=== PATIENT | male | born 1970 | race Caucasian/White ===

== ENCOUNTER 2016-09-18 18:57 | Emergency (ER) | payer BC ==
[2016-09-18 19:21] LABS: BASOPHILS % (AUTO) 0.6 %; EOSINOPHILS # (AUTO) 0.2 10^3/uL (0.0-0.7); EOSINOPHILS % (AUTO) 2.3 %; HCT - HEMATOCRIT 45.2 % (42.0-52.0); HGB - HEMOGLOBIN 15.5 g/dL (14.0-18.0); LYMPHOCYTES # (AUTO) 2.6 10^3/uL (1.5-3.5); LYMPHOCYTES % (AUTO) 36.7 %; MEAN CORPUSCULAR HEMOGLOBIN 30.1 pg (27.0-31.0); MEAN CORPUSCULAR HGB CONC 34.2 g/dL (32.0-36.0); MEAN PLATELET VOLUME 7.7 fL (7.4-11.4); MONOCYTES # (AUTO) 0.4 10^3/uL (0.0-1.0); MONOCYTES % (AUTO) 5.8 %; NEUTROPHILS # (AUTO) 3.9 10^3/uL (1.5-6.6); NEUTROPHILS % (AUTO) 54.6 %; NUCLEATED RED BLOOD CELLS AUTO 0.1 /100WBC; RED BLOOD COUNT 5.14 10^6/uL (4.70-6.10); UNCORRECTED WHITE BLOOD COUNT 7.2 x10^3/uL; WHITE BLOOD COUNT 7.2 x10^3/uL (4.8-10.8)
[2016-09-18 19:34] LABS: ALBUMIN/GLOBULIN RATIO 1.2 (1.0-2.2); BILIRUBIN,TOTAL 0.8 mg/dL (0.2-1.0); CREATININE 0.9 mg/dL (0.6-1.2); POTASSIUM 3.9 mmol/L (3.5-5.0); TOTAL PROTEIN 7.9 g/dL (6.7-8.2)
[2016-09-18] MEDS ORDERED: LIDOCAINE VISCOUS 2% 15 ML UDC MM STA (19:47)
[2016-09-18] MEDS ORDERED: ONDANSETRON 4 MG/2 ML VIAL IVP STA (19:47)
[2016-09-18] MEDS ORDERED: KETOROLAC 60 MG/2 ML VIAL IVP STA (19:47)
[2016-09-18] MEDS ORDERED: MAG HYDROX/AL HYDROX/SIMETH 30 ML UDC PO STA (19:47)
[2016-09-18] MEDS ORDERED: SODIUM CHLORIDE 0.9% 1,000 ML IV ONE (19:51)
--- NOTE | 2016-09-18 19:51 | ED Physician Documentation ---
PD HPI ABD PAIN - Stated complaint Stated Complaint: ABD PX - Chief complaint Chief Complaint: Abd Pain - History obtained from History obtained from: Patient, Family - History of Present Illness Timing - onset: Other (Healthy 45-year-old gentleman with no history of abdominal surgeries has had nonmigratory periumbilical and central low abdominal pain that he described as a burning and has been constant for the last 2-1/2 days associated with nausea and one episode of vomiting. He had a normal bowel movement on the day of onset but has not had a bowel movement since. He has not been obstipated though. There is no associated measured fever but per the girlfriend he felt hot last night. No recent travel.) Review of Systems Ten Systems: 10 systems reviewed and negative Constitutional: reports: Chills, Fatigue Nose: denies: Rhinorrhea / runny nose, Congestion Cardiac: denies: Chest pain / pressure, Palpitations Respiratory: denies: Dyspnea, Cough PD PAST MEDICAL HISTORY - Past Medical History Past Medical History: Yes Cardiovascular: Hypertension, High cholesterol - Past Surgical History Past Surgical History: No - Present Medications Home Medications: Ambulatory Orders Medication Instructions Recorded Confirmed Ondansetron HCl [Zofran] 4 mg PO Q6H PRN #10 tablet 09/18/16 - Allergies Allergies/Adverse Reactions: Allergies Allergy/AdvReac Type Severity Reaction Status Date / Time No Known Drug Allergies Allergy Verified 09/18/16 19:02 - Social History Does the pt smoke?: Yes Smoking Status: Current every day smoker Does the pt drink ETOH?: Yes Does the pt have substance abuse?: No - Family History Family history: reports: Non contributory PD ED PE NORMAL - Vitals Vital signs reviewed: Yes - General General: Alert and oriented X 3, No acute distress - HEENT HEENT: PERRL, EOMI - Neck Neck: Supple, no meningeal sign, No bony TTP - Cardiac Cardiac: RRR, No murmur - Respiratory Respiratory: No respiratory distress, Clear bilaterally - Abdomen Abdomen: Normal bowel sounds, Soft, Non tender - Back Back: No CVA TTP, No spinal TTP - Extremities Extremities: No deformity, No tenderness to palpate, No edema, No calf tenderness / cord - Neuro Neuro: Alert and oriented X 3, Normal speech - Psych Psych: Normal mood, Normal affect Results - Vitals Vitals: Vital Signs - 24 hr 09/18/16 09/18/16 19:00 20:49 Temperature 36.3 C L 36.1 C L Heart Rate 66 50 L Respiratory 22 14 Rate Blood Pressure 147/91 H 147/83 H O2 Saturation 98 99 Oxygen O2 Source Room air - Labs Labs: Laboratory Tests 09/18/16 09/18/16 09/18/16 19:16 19:16 20:34 WBC 7.2 RBC 5.14 Hgb 15.5 Hct 45.2 MCV 88.0 MCH 30.1 MCHC 34.2 RDW 13.0 Plt Count 224 MPV 7.7 Neut # 3.9 Lymph # 2.6 [place] # 0.4 Eos # 0.2 Baso # 0.0 Absolute Nucleated RBC 0.01 Nucleated RBCs 0.1 Sodium 137 Potassium 3.9 Chloride 103 Carbon Dioxide 27 Anion Gap 7.0 BUN 12 Creatinine 0.9 Estimated GFR (MDRD) 91 Glucose 106 H Calcium 9.0 Total Bilirubin 0.8 AST 18 ALT 22 Alkaline Phosphatase 63 Total Protein 7.9 Albumin 4.3 Globulin 3.6 Albumin/Globulin Ratio 1.2 Lipase 22 Urine Color YELLOW Urine Clarity CLEAR Urine pH 6.0 Ur Specific [place] 1.015 Urine Protein NEGATIVE Urine Glucose (UA) NEGATIVE Urine Ketones NEGATIVE Urine Occult Blood NEGATIVE Urine Nitrite NEGATIVE Urine Bilirubin NEGATIVE Urine Urobilinogen 0.2 (NORMAL) Ur Leukocyte Esterase NEGATIVE Ur Microscopic Review NOT INDICATED Urine Culture Comments NOT INDICATED PD MEDICAL DECISION MAKING - ED course ED course: 45-year-old gentleman with a few days worth of abdominal pain and nausea and one episode of vomiting. He has a benign exam, benign labs, and a benign CT. He felt better after Toradol, Zofran, and a GI cocktail. Given the time course of improvement after the administration of medications I suspect it was the Toradol that helped, not the GI cocktail. Regardless he requested discharge but was given abdominal pain precautions. Departure - Departure Disposition: 01 Home, Self Care Clinical Impression: Abdominal pain Qualifiers: Abdominal location: periumbilical Qualified Code(s): R10.33 - Periumbilical pain Condition: Good Record reviewed to determine appropriate education?: Yes Instructions: Abdominal Pain Prescriptions: Ondansetron HCl [Zofran] 4 mg PO Q6H PRN #10 tablet PRN Reason: Nausea / Vomiting Comments: Return in 12-24 hours if not better, anytime if worse or if you run a fever. Your blood pressure was elevated today on check into the emergency department. This does not mean that you have hypertension, it is a common phenomenon to come to the emergency department and have elevated blood pressure. I recommend that she see her primary care physician within the week to have it rechecked when you are feeling better.
[2016-09-18] MEDS ORDERED: KETOROLAC 30 MG/ML VIAL ONE (19:57)
[2016-09-18] MEDS ORDERED: MAG HYDROX/AL HYDROX/SIMETH 30 ML UDC ONE (19:57)
[2016-09-18] MEDS ORDERED: ONDANSETRON 4 MG/2 ML VIAL ONE (19:57)
[2016-09-18] MEDS ORDERED: LIDOCAINE VISCOUS 2% 15 ML UDC MM ONE (19:57)
[2016-09-18] MEDS ORDERED: IOPAMIDOL-300 100 ML VIAL IVP ONE (20:45)
[2016-09-18 20:49] LABS: BILIRUBIN,URINE NEGATIVE (NEGATIVE)
[2016-09-18 20:50] LABS: UA CHARGE (STRIP ONLY) YES; UR CULTURE IF IND NOT INDICATED
--- NOTE | 2016-09-18 21:02 | CT Preliminary Report ---
Exam: CT Abdomen/Pelvis W/ IMPRESSION: Incidental hepatic cysts. Diverticulosis, without CT evidence of diverticulitis. No evide nt etiology for patient's pain. [facility] SITE ID: [id number]
--- NOTE | 2016-09-18 21:05 | CT Report ---
EXAM: CT ABDOMEN AND PELVIS EXAM DATE: 09/18/2016 08:52 PM. CLINICAL HISTORY: Low abd pain, IV only. COMPARISONS: None. TECHNIQUE: Routine helical CT imaging was performed through the abdomen and pelvis. IV contrast: 100 mL Isovue 300. Enteric contrast: No. Reconstructions: Coronal and sagittal. In accordance with CT protocol optimization, one or more of the following dose reduction techniques w ere utilized for this exam: automated exposure control, adjustment of mA and/or KV based on patient s ize, or use of iterative reconstructive technique. FINDINGS: Lung Bases: Unremarkable. Liver: Scattered cysts. No solid hepatic lesion or intrahepatic biliary dilatation. Gallbladder/Bile Ducts: Unremarkable. Spleen: Small splenule anterior to the spleen. Normal spleen. Pancreas: Normal. Adrenal Glands: Normal. Kidneys: Normal. No masses or hydronephrosis. Peritoneal Cavity/Bowel: Normal. No free fluid, free air or adenopathy. No masses or acute inflammato ry process. The appendix is well visualized and normal. Pelvic Organs: There are a few scattered sigmoid diverticula present, without CT evidence of divertic ulitis. The bladder and visualized pelvic organs are within normal limits. Vasculature: No aneurysms or other significant abnormality. Bones: No significant abnormality. Other: None. IMPRESSION: Incidental hepatic cysts. Diverticulosis, without CT evidence of diverticulitis. No evide nt etiology for patient's pain. [facility] Referring Provider Line: [phone] SITE ID: [id number]
[2016-09-18 21:23] VITALS: BP 147/87
== END 2016-09-18 21:22 | disposition home or self-care (01) ==
LOC: ED 18:57
DX: R10.33 Periumbilical pain (principal); R11.2 Nausea with vomiting, unspecified; I10 Essential (primary) hypertension; F17.200 Nicotine dependence, unspecified, uncomplicated
CPT/HCPCS: 36415; 74177; 80053; 81003; 83690; 85025; 96374; 96375; 99283; 99284; A9270; Q9967; 81001; 87086

== ENCOUNTER 2023-04-10 13:51 | Emergency (ER) | payer OTHER ==
--- NOTE | 2023-04-10 14:56 | XRAY Report ---
PROCEDURE: Chest 1V INDICATIONS: Chest Pain TECHNIQUE: One view of the chest was acquired. COMPARISON: 11/08/2021 FINDINGS: Surgical changes and devices: None. Lungs and pleura: No pleural effusions or pneumothorax. Lungs are clear. Mediastinum: Mediastinal contours appear normal. Heart size is normal. Bones and chest wall: No suspicious bony lesions. Overlying soft tissues appear unremarkable. IMPRESSION: No acute cardiopulmonary process. Reviewed by: Goyo Adler MD on 04/10/2023 2:54 PM PST Approved by: Goyo Adler MD on 04/10/2023 2:54 PM [facility] Station ID: [id number]
[2023-04-10 15:08] LABS: BASOPHILS # (AUTO) 0.1 10^3/uL (0.0-0.1); EOSINOPHILS # (AUTO) 0.3 10^3/uL (0.0-0.7); EOSINOPHILS % (AUTO) 3.6 %; HGB - HEMOGLOBIN 15.6 g/dL (14.0-18.0); LYMPHOCYTES # (AUTO) 2.8 10^3/uL (1.5-3.5); LYMPHOCYTES % (AUTO) 40.9 %; MEAN CORPUSCULAR HEMOGLOBIN 29.4 pg (27.0-31.0); MEAN CORPUSCULAR HGB CONC 33.2 g/dL (32.0-36.0); MEAN CORPUSCULAR VOLUME 88.7 fL (80.0-94.0); MEAN PLATELET VOLUME 9.6 fL (7.4-11.4); MONOCYTES # (AUTO) 0.4 10^3/uL (0.0-1.0); MONOCYTES % (AUTO) 5.7 %; NEUTROPHILS # (AUTO) 3.3 10^3/uL (1.5-6.6); NEUTROPHILS % (AUTO) 48.5 %; PLT - PLATELET COUNT 240 10^3/uL (130-450); WHITE BLOOD COUNT 6.9 x10^3/uL (4.8-10.8)
[2023-04-10 15:41] LABS: TROPONIN I HIGH SENSITIVITY 2.3 ng/L (2.3-19.7)
[2023-04-10 15:44] LABS: ALBUMIN 4.1 g/dL (3.2-5.5); ALBUMIN/GLOBULIN RATIO 1.4 (1.0-2.2); BILIRUBIN,TOTAL 0.6 mg/dL (0.2-1.0); CALCIUM 9.3 mg/dL (8.5-10.3); POTASSIUM 4.3 mmol/L (3.5-4.5)
[2023-04-10 15:51] LABS: CREATININE 1.1 mg/dL (0.6-1.3)
[2023-04-10] MEDS ORDERED: iohexoL-300 100 ML VIAL ONE (18:44)
--- NOTE | 2023-04-10 19:34 | ED Physician Documentation ---
History of Present Illness - Stated complaint Stated Complaint: DIZZINESS,SOA,UPPER BACK PX - Chief complaint Chief Complaint: General - History obtained from History obtained from: Patient - History of Present Illness Timing: How many weeks ago (1) Pain level max: 4 Pain level now: 4 - Additonal information Additional information: Patient is a 52-year-old male who presents to the emergency department stating that for the past 1 week he has had upper and mid back pain as well as occasional neck and posterior head pain. He states he feels lightheaded often. Does not feel the room spinning. Nothing seems to make the pain better or worse. 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 No head injuries. No numbness or tingling. No loss of bowel or bladder control. He states that sometimes it feels better to lift the seatbelt off of his chest. Has not taken anything for pain. He does smoke, states rarely drinks alcohol. Denies any drug use. Denies any prior cardiac history. Review of Systems Constitutional: denies: Fever, Chills GI: denies: Vomiting, Diarrhea Skin: denies: Rash Musculoskeletal: denies: Neck pain, Back pain Neurologic: denies: Headache PD PAST MEDICAL HISTORY - Past Medical History Past Medical History: Yes Cardiovascular: Hypertension, High cholesterol - Past Surgical History Past Surgical History: No - Present Medications Home Medications: Ambulatory Orders Medication Instructions Recorded Confirmed ondansetron HCL [Zofran] 4 mg PO Q6H PRN #10 tablet 09/18/16 Atorvastatin [Lipitor] 20 mg PO DAILY #60 tablet 11/09/21 Nitroglycerin [Nitrostat] 0.4 mg SL [id number] #25 tablet 11/09/21 - Allergies Allergies/Adverse Reactions: Allergies Allergy/AdvReac Type Severity Reaction Status Date / Time No Known Drug Allergies Allergy Verified 04/10/23 13:55 - Social History Does the pt smoke?: Yes Smoking Status: Current every day smoker Does the pt drink ETOH?: Yes Does the pt have substance abuse?: No PD ED PE NORMAL - Vitals Vital signs reviewed: Yes - General General: Alert and oriented X 3, No acute distress - HEENT HEENT: PERRL, Moist mucous membranes - Neck Neck: Supple, no meningeal sign - Cardiac Cardiac: RRR, No murmur, Strong equal pulses - Respiratory Respiratory: No respiratory distress, Clear bilaterally - Abdomen Abdomen: Soft, Non tender, Non distended - Derm Derm: Warm and dry - Extremities Extremities: No edema, No calf tenderness / cord - Neuro Neuro: Alert and oriented X 3 - Psych Psych: Normal mood, Normal affect Results - Vitals Vitals: Vital Signs - 24 hr 04/10/23 04/10/23 04/10/23 13:55 17:09 19:28 Temperature 36.8 C Heart Rate 78 65 62 Respiratory 16 16 20 Rate Blood Pressure 145/90 H 128/82 H 118/64 O2 Saturation 98 100 98 04/10/23 20:00 Temperature Heart Rate 57 L Respiratory 19 Rate Blood Pressure 117/74 O2 Saturation 99 Oxygen O2 Source Room air - EKG (time done) 1555 EKG releavant findings:: EKG personally interpreted by author of this note. Relevant findings are: Rate: Rate (enter#) (70) Rhythm: NSR [place]: Normal Intervals: Normal [place] QRS: Normal Ischemia: Normal ST segments - Labs Labs: Laboratory Tests 04/10/23 04/10/23 15:02 15:02 WBC 6.9 RBC 5.30 Hgb 15.6 Hct 47.0 MCV 88.7 MCH 29.4 MCHC 33.2 RDW 13.0 Plt Count 240 MPV 9.6 Neut # (Auto) 3.3 Lymph # (Auto) 2.8 [place] # (Auto) 0.4 Eos # (Auto) 0.3 Baso # (Auto) 0.1 Absolute Nucleated RBC 0.00 Nucleated RBC % 0.0 Sodium 138 Potassium 4.3 Chloride 104 Carbon Dioxide 30 Anion Gap 4.0 L BUN 17 Creatinine 1.1 Estimated GFR (MDRD) 70 L Glucose 95 Calcium 9.3 Total Bilirubin 0.6 AST 17 ALT 20 Alkaline Phosphatase 66 Troponin I High Sens 2.3 Total Protein 7.0 Albumin 4.1 Globulin 2.9 Albumin/Globulin Ratio 1.4 Lipase 19 - Rads (name of study) Chest x-ray Relevant Findings:: Final report received, See rad report CT angiogram head and neck Relevant Findings:: Final report received, See rad report CT angiogram chest Relevant Findings:: Final report received, See rad report PD Medical Decision Making - ED course Complexity details: reviewed results, re-evaluated patient, considered differential, d/w patient ED course: Patient is a 52-year-old male who presents to the emergency department with back pain, intermittent chest tightness, lightheadedness and dizziness. His EKG does not show any acute abnormalities. His chest x-ray does not show any acute abnormalities. High-sensitivity troponin is normal. CT angiogram of the chest, head and neck were undertaken. No evidence of aortic dissection, vertebral artery dissection, carotid dissection. No evidence of PE. He has noted to have three-vessel cardiac disease with calcification. I discussed the case with Dr. Concepcion, cardiology at [facility]. He states that the patient is not safe to be discharged home for outpatient follow-up, recommends heparin/Lovenox for 24 hours and a cardiac stress test. There are no beds available anywhere in the [place]. It is unclear whether we can perform a cardiac stress test here tomorrow or not. The plan will be to transfer the patient for further cardiac workup. The patient was given Lovenox and aspirin. Patient will be boarded in the emergency department. Patient was signed out to Dr. Colon for care overnight. This document was made in part using voice recognition software. While efforts are made to proofread this document, sound alike and grammatical errors may occur. Departure - Departure Disposition: 02 Transfer Acute Care Hosp Clinical Impression: Unstable angina, 3-vessel coronary artery disease Condition: Stable Forms: PCP List
[2023-04-10] MEDS ORDERED: iohexoL-300 100 ML VIAL IVP ONE (19:41)
--- NOTE | 2023-04-10 20:16 | CT Report ---
PROCEDURE: Angio Chest INDICATIONS: chest/back pain CONTRAST: 80mL Omni 300 TECHNIQUE: After the administration of intravenous contrast, 2 mm axial images were acquired from the pulmonary apices to the posterior costophrenic angles during the arterial phase. In addition, 1 mm lung kernel and 5 mm soft tissue kernel reconstructions were performed. 3-dimensional coronal oblique maximum int ensity projection (MIP) reformats, 8 mm axial MIP, and 5 mm coronal and sagittal MPR reformats were t hen performed through the thorax. For radiation dose reduction, the following was used: automated exp osure control, adjustment of mA and/or kV according to patient size. COMPARISON: CT abdomen pelvis 09/18/2016. FINDINGS: Image quality: Excellent. Large vessels: No filling defects within the opacified pulmonary arteries, accounting for motion and contrast timing. No evidence of acute aortic syndrome or aortic aneurysm. Lungs and pleura: No consolidation. No pleural effusions. No pneumothorax. No suspicious pulmonary no dules which require follow up. Left lower lobe calcified granuloma. Trace secretions in the trachea. Mediastinum: Heart size is normal. Mild three-vessel coronary artery calcifications. Early onset. No pericardial effusion. No large vessel abnormality. No mediastinal adenopathy by size criteria. Chest wall and lower neck: Thyroid is unremarkable. No axillary or supraclavicular adenopathy by size . Bones: No aggressive osseous abnormality. Upper Abdomen: Small hypodensities in the liver, appears similar. Suspect benign cysts. IMPRESSION: 1. No pulmonary embolism. No aortic dissection. 2. No acute airspace opacity. Trace secretions in the trachea. 3. Mild three-vessel coronary artery calcifications. Early onset. Reviewed by: Deejay Juarez MD on 04/10/2023 8:15 PM PST Approved by: Deejay Juarez MD on 04/10/2023 8:15 PM PST Station ID: [id number]
--- NOTE | 2023-04-10 20:21 | CT Report ---
PROCEDURE: Angio Head/Neck INDICATIONS: neck/head pain, dizzy TECHNIQUE: After the administration of intravenous contrast, 1 mm thick sections acquired from the aortic arch t hrough the [place] of [place]. 3-dimensional tavzuwq-gmandejml-ffbadnbfei (MIP) and/or volume renderin g reformats were acquired of the central intracranial vasculature and neck separately. For radiation dose reduction, the following was used: automated exposure control, adjustment of mA and/or kV acco rding to patient size. CONTRAST: 80 cc Isovue-300. COMPARISON: None. FINDINGS: Image quality: Diagnostic. HEAD CT: CSF Spaces: Basal cisterns are patent. No extra-axial fluid collections. Ventricles are normal in size and shape. Brain: The brain is within normal limits for age and scanning technique. Skull and face: Calvarium and visualized facial bones appear intact, without suspicious lesions. Sinuses: Visualized sinuses and mastoids are clear. HEAD CT ANGIOGRAPHY: Anterior circulation: Intracranial internal carotid arteries are normal in size and flow. The flow within the paired anterior cerebral arteries is normal and symmetric. The flow within the middle cer ebral arteries is normal and symmetric. The anterior communicating artery is seen. No aneurysms are seen. Posterior circulation: Visualized portions of the vertebral arteries demonstrate normal caliber, and join to form a normal appearing basilar artery. Flow within the posterior cerebral arteries is norm al and symmetric. No aneurysms are seen. NECK CT ANGIOGRAPHY: Carotid system: The great vessels demonstrate a conventional anatomy as they arise from the aortic a rch. The origins of the common carotid arteries appear patent. The common carotid arteries demonstr ate normal caliber and courses. The bifurcation regions are both widely patent. The internal caroti d arteries demonstrate normal calibers and courses. Posterior circulation: The origins of the vertebral arteries both appear widely patent. Right verteb ral artery is dominant. The more superior extracranial portions of both vertebral arteries also demon strate normal courses and calibers. They join to form a normal appearing basilar artery. Soft tissues: Visualized neck soft tissues demonstrate no suspicious abnormalities. Bones: No suspicious bony lesions. Visualized cervical spine appears normally aligned. IMPRESSION: No large vessel occlusion. No significant abnormality is seen within the arteries of the neck. The estimate of stenosis included in the report of the imaging study was calculated using the NASCET method Reviewed by: Deejay Juarez MD on 04/10/2023 8:20 PM PST Approved by: Deejay Juarez MD on 04/10/2023 8:20 PM [facility] Station ID: [id number]
[2023-04-10] MEDS ORDERED: ASPIRIN CHEW 81 MG TABLET PO STA (20:38)
[2023-04-10] MEDS ORDERED: ENOXAPARIN 100 MG/ML SYRINGE SUBQ STA (20:58)
[2023-04-10] MEDS ORDERED: ONDANSETRON 4 MG/2 ML VIAL IVP PRN (21:20)
[2023-04-10] MEDS ORDERED: ACETAMINOPHEN 500 MG TABLET PO PRN (21:20)
[2023-04-10 23:43] LABS: B. PARAPERTUSSIS- RESP PCR PAN NOT DETECTED; B. PERTUSSIS- RESP PCR PANEL NOT DETECTED; C. PNEUMONIAE- RESP PCR PANEL NOT DETECTED; CORONAVIRUS 229E-RESP PCR NOT DETECTED; CORONAVIRUS HKU1-RESP PCR NOT DETECTED; CORONAVIRUS NL63-RESP PCR NOT DETECTED; CORONAVIRUS OC43-RESP PCR NOT DETECTED; HUMAN METAPNEUMOVIRUS NOT DETECTED; INFLUENZA A- RESP PCR PANEL NOT DETECTED; INFLUENZA B - RESP PCR PANEL NOT DETECTED; M. PNEUMONIAE- RESP PCR PANEL NOT DETECTED; PARAINFLUENZA VIRUS 1 NOT DETECTED; PARAINFLUENZA VIRUS 2 NOT DETECTED; PARAINFLUENZA VIRUS 3 NOT DETECTED; PARAINFLUENZA VIRUS 4 NOT DETECTED; RHINOVIRUS/ENTEROVIRUS NOT DETECTED; RSV- RESP PCR PANEL NOT DETECTED; SARS-CoV-2 -RESP PCR PANEL NOT DETECTED
[2023-04-11 05:49] LABS: BASOPHILS # (AUTO) 0.1 10^3/uL (0.0-0.1); EOSINOPHILS # (AUTO) 0.3 10^3/uL (0.0-0.7); EOSINOPHILS % (AUTO) 4.7 %; HCT - HEMATOCRIT 44.4 % (42.0-52.0); HGB - HEMOGLOBIN 14.8 g/dL (14.0-18.0); LYMPHOCYTES # (AUTO) 3.6 10^3/uL (1.5-3.5); LYMPHOCYTES % (AUTO) 52.2 %; MEAN CORPUSCULAR HEMOGLOBIN 29.5 pg (27.0-31.0); MEAN CORPUSCULAR HGB CONC 33.3 g/dL (32.0-36.0); MEAN CORPUSCULAR VOLUME 88.6 fL (80.0-94.0); MEAN PLATELET VOLUME 9.5 fL (7.4-11.4); MONOCYTES # (AUTO) 0.4 10^3/uL (0.0-1.0); NEUTROPHILS # (AUTO) 2.4 10^3/uL (1.5-6.6); NEUTROPHILS % (AUTO) 35.7 %; PLT - PLATELET COUNT 221 10^3/uL (130-450); RED BLOOD COUNT 5.01 10^6/uL (4.70-6.10); RED CELL DISTRIBUTION WIDTH 12.9 % (12.0-15.0); WHITE BLOOD COUNT 6.8 x10^3/uL (4.8-10.8)
[2023-04-11 06:03] LABS: CALCIUM 8.9 mg/dL (8.5-10.3); CREATININE 1.1 mg/dL (0.6-1.3); POTASSIUM 3.8 mmol/L (3.5-4.5)
[2023-04-11] MEDS: PANTOPRAZOLE 40 MG TABLET PO SCH (06:48)
[2023-04-11] MEDS: ASPIRIN CHEW 81 MG TABLET PO SCH (09:34)
[2023-04-11] MEDS: ENOXAPARIN 100 MG/ML SYRINGE SUBQ SCH ×2 (09:34→21:06)
--- NOTE | 2023-04-11 20:46 | ED Physician Documentation ---
ED Addendum - Addendum Addendum: Patient is a 52-year-old male who is boarding in the emergency department and was supposed to have a stress test today. For unclear reasons that test was canceled by the diagnostic imaging department. I spoke with Dr. Feliciano, who performs and reviewed the cardiac stress test, he states that he will come in early tomorrow morning to do a cardiac stress test on this patient. Patient will be n.p.o. after midnight. We will continue his current Lovenox and aspirin. No chest pain currently. Patient feels well today. No lightheadedness, dizziness, neck or back pain today. Patient will be signed out to the oncoming emergency department physician. This document was made in part using voice recognition software. While efforts are made to proofread this document, sound alike and grammatical errors may occur. Departure - Departure Clinical Impression: 3-vessel coronary artery disease Condition: Stable Forms: PCP List
--- NOTE | 2023-04-12 07:26 | CARDIAC PROCEDURE NOTE ---
Stress Test Report Service Date: 04/12/23 Service Time: 07:00 Ordering Provider: Jose Pineda MD Indication for Test: Assess one week history of increased exertional dyspnea, mid-scapular back pain and lightheadedness in a patient with multiple CAD risk factors, who is currently under evaluation in our Emergency Department. Significant Medical History: Juan Miguel tells me that when living in [place] ~10-12 years ago he was found to have elevated blood pressure and cholesterol levels and he was started on treatment for both, with reported good results and regular follow up. He was also treated for a short period with CPAP for SUZI, without clear symptom benefit. He relocated to [place] about 7 years ago and did not re-establish with regular medical care or his prior treatments. 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 He reports ongoing fatigue and a low threshold for shortness of breath (in the setting of continued cigarette smoking) but he was in his usual state when about a week ago he started experiencing marked lightheadedness with exertion that was new for him. He also began experiencing some mid-scapular back pain that may have radiated slightly forward, but not upward to the neck or jaw. The symptoms were not associated with increased diaphoresis, generally waxed and waned with exertion and were not troublesome at rest. Upon presentation to our E.D. nearly 48 hours ago he was not symptomatic, BP was 145/90, EKG non-ischemic in appearance with a normal-range HS-troponin level. A chest CT angio was performed showing no major vessel abnormalities, nor evidence for pulmonary emboli, but mild three-vessel "early stage" coronary artery calcifications were noted. He was thus referred for a treadmill stress echocardiogram to assess a possible cardiac ischemic et iology for his symptoms. Cardiac Risk Factors: Positive for hypertension and hyperlipidemia (identified over 10 years ago and treated for about 3 years prior to discontinuation); positive for >30 years of cigarette smoking, currently about 1/2 ppd; patient told in the past he was pre- diabetic and he was treated for SUZI with CPAP for a few months; no known family history of CAD in close relatives, though his father did have history of a CVA. Type of Stress Test: ETT with Echocardiography Procedure: -Exercise Treadmill Test- After signing informed consent, the patient underwent echo imaging at rest and then performed treadmill exercise using a Lexx protocol. The patient exercised for 6 minutes 35 seconds and achieved a peak heart rate of 162 (96 percent predicted maximum heart rate for age), and an estimated workload of 8 METS. The test was terminated due to fatigue/shortness of breath. Resting heart rate: 77 Peak heart rate: 162 Normal response to exercise. Resting BP: 116/88 Peak BP: 205/81 Normal response of systolic and diastolic BPs to exercise. Rhythm during exercise: Sinus rhythm throughout, without ectopy. Symptoms: Exercise was limited by progressive dyspnea, without description of any chest/back/shoulder/jaw pressure/discomfort nor lightheadedness. EKG at rest showed normal sinus rhythm, with early precordial R/S transition, with <[address] elevation in some leads, likely normal early repolarization variant. EKG at peak stress showed J-point depression with upsloping ST segments NOT meeting EKG diagnostic criteria for ischemia. In Recovery HR and BP decreased rapidly/normally fully to resting levels in 5 minutes. Echo imaging, performed at rest and with stress, will be reported separately. IJacques MD, was present throughout this treadmill stress study and supervised it in its entirety. Summary: 1) Exercise tolerance significantly reduced for age and sex as evidenced by NASRIN of 31%. 2) Normal resting EKG. 3) Adequate level of exercise was achieved on this treadmill stress test. 4) Normal BP response to exercise. 5) No ischemic changes by EKG criteria were seen at peak stress. 6) Resting and stress-associated echo images were of reduced quality, presumably due to patient's body habitus and smoking history. However, echo image interpretation reveals normal left ventricular size, wall thickness and systolic function, with appropriate hyperdynamic augmentation of all segments with exercise, likely indicating no evidence of prior infarct or inducible ischemia. The interpreting business attorney recommends stress nuclear imaging given limitations of echo image analysis. No significant valvular abnormality or elevation of estimated pulmonary artery systolic pressure seen on screening study. See separate report for more details. Conclusions and Recommendations: 1) The patient walked to target heart rate with normal BP increase, without reproduction of symptoms and without EKG or clear echocardiographic evidence of inducible ischemia. 2) All of the these favorable aspects of the study were discussed with Dr Love in the E.D. following the test's conclusion, with agreement that it should be safe for him to be discharged from the E.D. and to establish out-patient care in the near future, to include re-institution of prior risk-reducing cardiovascular meds and further evaluation of his lightheadedness and back discomfort, which remain unexplained. It would be reasonable for the patient to undergo a repeat treadmill stress test with nuclear imaging, given limitations of image quality on the current study.
[2023-04-12] MEDS: ASPIRIN CHEW 81 MG TABLET PO SCH (08:33)
[2023-04-12] MEDS: PANTOPRAZOLE 40 MG TABLET PO SCH (08:33)
[2023-04-12] MEDS: ENOXAPARIN 100 MG/ML SYRINGE SUBQ SCH (08:34)
[2023-04-12 10:14] VITALS: BP 117/73
[2023-04-12 10:24] VITALS: O2SAT 96
== END 2023-04-12 10:20 | disposition home or self-care (01) ==
LOC: ED 13:51
DX: I25.10 Atherosclerotic heart disease of native coronary artery without angina pectoris (principal); I10 Essential (primary) hypertension; F17.200 Nicotine dependence, unspecified, uncomplicated
CPT/HCPCS: 36415; 70496; 70498; 71045; 71275; 80048; 80053; 83690; 84484; 85025; 87633; 93005; 93350; 96372; 99284; A9270; J1650; Q9967

== ENCOUNTER 2023-05-27 08:00 | Outpatient (CLI) | payer OTHER ==
--- NOTE | 2023-05-28 08:26 | XRAY Report ---
PROCEDURE: Ankle 3+V LT INDICATIONS: LEFT ANKLE EFFUSION TECHNIQUE: 3 views of the ankle were acquired. COMPARISON: None. FINDINGS: Bones: No fractures or dislocations. Ankle mortise is normally aligned. No suspicious bony lesions . Soft tissues: Positive tibiotalar joint effusion. Achilles tendon appears normal. Lateral soft tis klaudia swelling. IMPRESSION: 1. No acute bony abnormality. 2. Lateral ankle sprain, ankle joint effusion Comment: If symptoms persist, consider repeat plain films and possibly left ankle MRI. Reviewed by: Tony Bustamante MD on 05/28/2023 8:24 AM PDT Approved by: Tony Bustamante MD on 05/28/2023 8:24 AM PDT Station ID: [id number]
== END 2023-05-27 23:59 | disposition home or self-care (01) ==
LOC: DI.S 08:00
PROVIDERS: ATTEND Physician Assistant Medical
DX: M25.472 Effusion, left ankle (principal); S93.402A Sprain of unspecified ligament of left ankle, initial encounter

== ENCOUNTER 2023-05-29 08:26 | Outpatient (CLI) | payer OTHER ==
--- NOTE | 2023-05-29 23:07 | CT Report ---
PROCEDURE: Lung Cancer Screen INDICATIONS: SCREENING FOR LUNG CA TECHNIQUE: A CT scan of the chest was performed. Intravenous contrast media was not administered. Images were re corded and evaluated at appropriate window settings. Reformats: axial MIP of the chest, coronal and s agittal. For radiation dose reduction, the following was used: automated exposure control, adjustment of mA and/or kV according to patient size. COMPARISON: CTA chest dated April 10, 2023. FINDINGS: Image quality: Excellent. Prior cancer history: Unsure. Lungs and pleura: No pleural effusions. No pneumothorax. Compared to CTA chest dated April 10, no new or enlarging solid pulmonary nodules or consolidation. Left lower lobe solid pulmonary nodu le measuring 2 mm (/), stable. Left lower lobe calcified granuloma. Patent central airways. Mediastinum: Heart size is normal. No pericardial effusion. No large vessel abnormality. No mediastin al adenopathy by size criteria. Mild three-vessel coronary calcifications. Minimal calcification of the thoracic aorta. Chest wall and lower neck: Thyroid is unremarkable. No axillary or supraclavicular adenopathy by size . Bones: No aggressive osseous abnormality. Healed fracture deformity of the right posterior sixth rib, stable. No acute fracture. Upper Abdomen: Stable scattered hypodensities in the liver appears similar. IMPRESSION: 1. Compared to CTA chest dated April 10, 2023, no new or enlarging solid pulmonary nodules or conso lidation. Left lower lobe solid pulmonary nodule measuring 2 mm is stable. Lung RAD: 2 - Benign. Recommendation: Continue annual screening in 12 Months with LDCT 2. Mild three-vessel coronary calcifications, premature given patient's age. Reviewed by: Félix Kendrick MD on 05/29/2023 11:06 PM PDT Approved by: Félix Kendrick MD on 05/29/2023 11:06 PM PDT Station ID: [id number]
== END 2023-05-29 08:27 | disposition home or self-care (01) ==
LOC: DI 08:26
PROVIDERS: ATTEND Nurse Practitioner Acute Care
DX: Z12.2 Encounter for screening for malignant neoplasm of respiratory organs (principal); I25.10 Atherosclerotic heart disease of native coronary artery without angina pectoris; R91.1 Solitary pulmonary nodule

== ENCOUNTER 2023-06-19 07:04 | Outpatient (CLI) | payer OTHER ==
[2023-06-19 07:42] LABS: ALBUMIN 3.9 g/dL (3.2-5.5); ALBUMIN/GLOBULIN RATIO 1.3 (1.0-2.2); ALKALINE PHOSPHATASE 69 IU/L (42-121); ALT ALANINE AMINOTRANSFERASE 26 IU/L (10-60); AST ASPARTATE AMINOTRANSFERASE 19 IU/L (10-42); BILIRUBIN,TOTAL 0.7 mg/dL (0.2-1.0); BUN - BLOOD UREA NITROGEN 16 mg/dL (6-20); CALCIUM 9.4 mg/dL (8.5-10.3); CARBON DIOXIDE - CO2 27 mmol/L (21-32); CHLORIDE 105 mmol/L (101-111); CHOL/HDL RATIO 4.6 (<5.0); CHOLESTEROL 210 mg/dL; CREATININE 1.2 mg/dL (0.6-1.3); GFR - MDRD 64 (>89); GLUCOSE 109 mg/dL (74-104); HDL CHOLESTEROL 46 mg/dL; LDL CHOLESTEROL,CALCULATED 142 mg/dL; LDL/HDL RATIO 3.1 (<3.6); POTASSIUM 3.7 mmol/L (3.5-4.5); SODIUM 138 mmol/L (135-145); TRIGLYCERIDES 109 mg/dL (48-352); VLDL CHOLESTEROL 22 mg/dL
[2023-06-19 07:44] LABS: BASOPHILS % (AUTO) 0.7 %; EOSINOPHILS # (AUTO) 0.3 10^3/uL (0.0-0.7); EOSINOPHILS % (AUTO) 4.7 %; HCT - HEMATOCRIT 49.2 % (42.0-52.0); HGB - HEMOGLOBIN 15.9 g/dL (14.0-18.0); LYMPHOCYTES # (AUTO) 2.1 10^3/uL (1.5-3.5); LYMPHOCYTES % (AUTO) 36.8 %; MEAN CORPUSCULAR HEMOGLOBIN 28.6 pg (27.0-31.0); MEAN CORPUSCULAR HGB CONC 32.3 g/dL (32.0-36.0); MEAN CORPUSCULAR VOLUME 88.5 fL (80.0-94.0); MEAN PLATELET VOLUME 9.3 fL (7.4-11.4); MONOCYTES # (AUTO) 0.5 10^3/uL (0.0-1.0); MONOCYTES % (AUTO) 7.9 %; NEUTROPHILS # (AUTO) 2.8 10^3/uL (1.5-6.6); NEUTROPHILS % (AUTO) 49.4 %; PLT - PLATELET COUNT 308 10^3/uL (130-450); RED BLOOD COUNT 5.56 10^6/uL (4.70-6.10); RED CELL DISTRIBUTION WIDTH 12.6 % (12.0-15.0); WHITE BLOOD COUNT 5.7 x10^3/uL (4.8-10.8)
[2023-06-19 07:52] LABS: THYROID STIMULATING HORMONE 0.92 uIU/mL (0.34-5.60)
[2023-06-19 10:07] LABS: ESTIMATED AVERAGE GLUCOSE 68 mg/dL (70-100)
== END 2023-06-19 07:05 | disposition home or self-care (01) ==
LOC: LAB 07:04
PROVIDERS: ATTEND Nurse Practitioner Acute Care
DX: Z12.5 Encounter for screening for malignant neoplasm of prostate (principal); Z13.228 Encounter for screening for other metabolic disorders; Z13.220 Encounter for screening for lipoid disorders; Z13.1 Encounter for screening for diabetes mellitus; Z13.29 Encounter for screening for other suspected endocrine disorder; Z13.0 Encounter for screening for diseases of the blood and blood-forming organs and certain disorders involving the immune mechanism
CPT/HCPCS: 36415; 80053; 80061; 83036; 83721; 84153; 84443; 85025